=== PATIENT | male | born 1985 ===

== ENCOUNTER 2021-12-25 03:41 | Emergency (ER) | payer BC ==
[2021-12-25] MEDS ORDERED: Diphtheria,Pertussis(Acell),Tetanus Vaccine 0.5 ML Syringe IM ONE (04:36)
[2021-12-25] MEDS ORDERED: Lidocaine 1% 5 ML VIAL INJECT ONE (04:36)
[2021-12-25] MEDS ORDERED: Bacitracin/Neomycin/Polymyxin B Oint 0.9 GM U/D Packet TOP ONE (05:17)
== END 2021-12-25 05:45 | disposition home or self-care (01) ==
LOC: LL.ED 03:41
DX: S01.551A Open bite of lip, initial encounter (principal); Z72.0 Tobacco use; Z23 Encounter for immunization; W54.0XXA Bitten by dog, initial encounter
CPT/HCPCS: 12011; 90471; 90715; 99283-25

== ENCOUNTER 2022-04-07 23:50 | Emergency (ER) | payer BC ==
[2022-04-08] MEDS: LORazepam 2 MG/ML SDV IM ONE (00:51)
[2022-04-08 02:23] LABS: CORONAVIRUS COVID-19 NAA NEGATIVE (NEGATIVE); RESPIRATORY SYNCYTIAL VIR NAA NEGATIVE (NEGATIVE)
== END 2022-04-08 02:50 | disposition home or self-care (01) ==
LOC: LL.ED 23:50
DX: F41.9 Anxiety disorder, unspecified (principal); F32.A Depression, unspecified; F17.210 Nicotine dependence, cigarettes, uncomplicated; Z20.822 Contact with and (suspected) exposure to COVID-19
CPT/HCPCS: 0241U; 96372; 99284; J2060; 99283

== ENCOUNTER 2025-04-07 00:36 | Emergency (ER) | payer BC ==
[2025-04-07] MEDS: Sodium Chloride 0.9% 1,000 ML IV ONE ×2 (00:45→01:59)
[2025-04-07] MEDS: Sodium Chloride 0.9% 10 ML Syringe FLUSH PRN (01:30)
[2025-04-07 01:32] LABS: BASOPHILS ABSOLUTE AUTO 0.06 K/uL (0.00-0.20); BASOPHILS PERCENT AUTO 0.5 % (0.0-2.0); EOSINOPHILS ABSOLUTE AUTO 0.06 K/uL (0.00-0.50); EOSINOPHILS PERCENT AUTO 0.5 % (0.0-5.0); HEMATOCRIT 45.9 % (39.0-49.0); HEMOGLOBIN 16.1 g/dL (13.1-16.8); IMMATURE GRAN ABSOLUTE AUTO 0.03 10^3/uL (0.00-0.04); IMMATURE GRAN PERCENT AUTO 0.3 % (0.0-0.4); LYMPHOCYTES ABSOLUTE AUTO 2.25 K/uL (0.50-3.50); LYMPHOCYTES PERCENT AUTO 20.5 % (10.0-50.0); MEAN CORPUSCULAR HEMOGLOBIN 33.3 pg (28.2-33.3); MEAN CORPUSCULAR HGB CONC 35.1 g/dL (31.7-36.0); MEAN CORPUSCULAR VOLUME 94.8 fL (84.0-98.0); MONOCYTES ABSOLUTE AUTO 0.82 K/uL (0.00-1.00); MONOCYTES PERCENT AUTO 7.5 % (2.0-14.0); NEUTROPHILS ABSOLUTE AUTO 7.76 K/uL (1.40-7.00); NEUTROPHILS PERCENT AUTO 70.7 % (45.0-80.0); PLATELET COUNT,PLT 187 K/uL (150-350); RED BLOOD CELL COUNT 4.84 M/uL (4.33-5.41); RED CELL DISTRIBUTION WIDTH 11.9 % (11.2-14.1)
[2025-04-07 01:45] LABS: ALBUMIN 3.9 g/dL (3.4-5.0); ANION GAP 10.1 meq/L (7-15); BILIRUBIN TOTAL 0.3 mg/dL (0.2-1.0); CALCIUM 8.7 mg/dL (8.5-10.1); CARBON DIOXIDE,CO2 24.9 mmol/L (21.0-32.0); CREATININE 1.32 mg/dL (0.51-1.17); EST CRCL DRUG DOSING (CG) 78.35 mL/min; ETHANOL BLOOD MEDICAL 0.029 g/dL (0.000-0.080); POTASSIUM,K 3.7 mmol/L (3.5-5.1); PROTEIN TOTAL,TP 7.3 g/dL (6.4-8.2)
[2025-04-07 02:02] LABS: AMPHETAMINES SCREEN, URINE NEGATIVE (NEGATIVE); BARBITURATE SCREEN,URINE NEGATIVE (NEGATIVE); BENZODIAZEPINES SCREEN,URINE NEGATIVE (NEGATIVE); COCAINE METABOLITES,URINE NEGATIVE (NEGATIVE); EDDP,URINE SCREEN NEGATIVE (NEGATIVE); METHAMPHETAMINES SCREEN, URINE NEGATIVE (NEGATIVE); TCA SCREEN,URINE NEGATIVE (NEGATIVE); THC SCREEN,URINE 50 NG/ML POSITIVE (NEGATIVE)
[2025-04-07 02:03] LABS: BUPRENORPHINE SCREEN,URINE NEGATIVE (NEGATIVE); OXYCODONE SCREEN,URINE NEGATIVE (NEGATIVE)
== END 2025-04-07 03:01 | disposition home or self-care (01) ==
LOC: LL.ED 00:36
DX: E86.0 Dehydration (principal); F10.10 Alcohol abuse, uncomplicated
CPT/HCPCS: 36415; 80053; 80305-QW; 80307; 85025; 96360; 96361; 99284-25; J7030